=== PATIENT | female | born 1985 | race Caucasian/White ===

== ENCOUNTER 2021-11-12 12:00 | Outpatient (CLI) | payer MEDICAID, SELFPAY ==
[2021-11-12 13:56] LABS: Basophils Absolute Auto 0.02 K/uL (0.00-0.30); Basophils Percent Auto 0.3 % (0.0-3.0); Eosinophils Absolute Auto 0.12 K/uL (0.00-0.50); Eosinophils Percent Auto 1.7 % (0.0-7.0); Hematocrit 40.5 % (33.0-51.0); Hemoglobin* 13.6 gm/dL (12.0-16.0); Immature Granulocytes Abs Auto 0.01 K/uL (0.00-0.30); Lymphocytes Percent Auto 31.9 % (20-44); Mean Corpuscular HGB Conc 34 gm/dL (32-36); Mean Corpuscular Hemoglobin 31 pg (26-34); Mean Corpuscular Volume 92 fL (80-100); Monocytes Percent Auto 5.7 % (0.0-11.0); Neutrophils Absolute Auto 4.15 K/uL (1.7-7.0); Neutrophils Percent Auto 60.3 % (42.0-72.0); Platelet Count* 315 K/uL (140-440); RDW Coefficient of Variation % 11.6 % (11.5-15.5); Red Blood Count 4.42 m/uL (4.00-5.20); White Blood Count* 6.89 K/uL (4.50-11.00)
[2021-11-12 14:05] LABS: Bilirubin Direct* 0.2 mg/dL (0.0-0.5); Bilirubin Total* 0.2 mg/dL (0.1-1.5)
[2021-11-12 14:06] LABS: Alanine Aminotransferase* 24 U/L (4-35); Alkaline Phosphatase* 103 U/L (40-150); Aspartate Amino Transferase* 24 U/L (12-35); Total Protein* 6.9 g/dL (6.0-8.3)
[2021-11-12 14:19] LABS: C Reactive Protein* < 0.5 mg/dL (0.5-1.0)
[2021-11-12 14:44] LABS: Slide Review Reflex No
== END 2021-11-12 12:01 | disposition home or self-care (01) ==
PROVIDERS: PCP Family Medicine; Visit Provider Family Medicine
DX: R10.2 Pelvic and perineal pain (principal)
CPT/HCPCS: 80076; 85025; 86140

== ENCOUNTER 2021-11-20 11:33 | Outpatient (CLI) | payer MEDICAID, SELFPAY | END 2021-11-20 11:34 | disposition home or self-care (01) | LOC: FBOREF 11:33 | PROVIDERS: PCP Family Medicine; Visit Provider Family Medicine | DX: R10.2 Pelvic and perineal pain (principal); Z12.4 Encounter for screening for malignant neoplasm of cervix | CPT/HCPCS: 87624; 88175 ==

== ENCOUNTER 2021-12-05 13:14 | Outpatient (CLI) | payer MEDICAID, SELFPAY ==
--- NOTE | 2021-12-05 13:00 | CRLHL7_ITS ---
For Patients: As a result of the Century Cures Act, medical imaging exams and procedure reports are released immediately into your electronic medical record. You may view this report before your referring provider. If you have questions, please contact your health care provider. INDICATION: LIVER LESIONS SEEN ON CT Indication: Liver lesions on CT scan. Technique: MRI of the abdomen without and with intravenous gadolinium. Three plane localizer, 3 plane traverses, axial T1 weighted in and out of phase, axial T2 weighted without and with fat suppression, axial STIR, axial diffusion-weighted imaging with ADC map, and pre and post contrast axial coronal T1 weighted fat-suppressed VIBE pulse sequences were obtained. 20 cc of IV dotarem. Comparison: Outside CT of the abdomen and pelvis, 10/26/2021. Findings: The liver morphology is non cirrhotic. On the arterial phase, multiple liver lesions are present. The largest is seen in segment VII of the liver, image 23, series 18, which measures 6.0 x 5.2 cm in AP and transverse dimensions. This lesion has a central scar, and is more isointense on the portal venous/equilibrium phases of the exam. Lesions do not demonstrate intra voxel fat, and there is no T1 shortening within the lesion to indicate hemorrhagic transformation. No steatosis on chemical shift imaging. Non cirrhotic liver morphology. The hepatic veins, IVC, main portal vein, splenic vein, and SMV are patent. Symmetric nephrograms. No adrenal mass. No perinephric fluid collection. Spleen size is normal. No pancreatic mass, pancreatic duct dilation, or glandular atrophy. No abdominal lymphadenopathy or ascites. Normal marrow signal intensity. No pleural or pericardial effusion. Normal caliber biliary tree. No common bile duct stone or mass. Impression: 1. Multiple liver lesions which enhance during the arterial phase, do not contain intra voxel fat on chemical shift imaging, and which have a potential central scar on postcontrast images. 2. Regions of focal nodular hyperplasia are favored over hepatic adenomas. 3. Non cirrhotic liver morphology. 4. No abdominal lymphadenopathy or ascites. 5. Multidisciplinary evaluation is suggested. MRI evaluation in 3-6 months is suggested to begin documentation of stability. Dictated by Alonso Gaytan MD @ 12/08/2021 11:45:32 AM Dictated by: Alonso Gaytan MD @ 12/08/2021 11:45:48 (Electronically Signed)
== END 2021-12-05 13:15 | disposition home or self-care (01) ==
PROVIDERS: PCP Family Medicine; Visit Provider Family Medicine
DX: K76.9 Liver disease, unspecified (principal); K74.60 Unspecified cirrhosis of liver
CPT/HCPCS: 74183; A9575

== ENCOUNTER 2022-02-09 14:55 | Outpatient (CLI) | payer MEDICAID, SELFPAY | END 2022-02-09 14:56 | disposition home or self-care (01) | LOC: LAB 14:55 | PROVIDERS: PCP Family Medicine; Visit Provider Obstetrics & Gynecology | DX: N92.0 Excessive and frequent menstruation with regular cycle (principal) | CPT/HCPCS: 36415; 84443 ==

== ENCOUNTER 2022-02-16 15:53 | Outpatient (CLI) | payer MEDICAID, SELFPAY ==
--- NOTE | 2022-02-16 16:00 | CRLHL7_ITS ---
For Patients: As a result of the Century Cures Act, medical imaging exams and procedure reports are released immediately into your electronic medical record. You may view this report before your referring provider. If you have questions, please contact your health care provider. INDICATION: Ovarian cysts. TECHNIQUE: Transabdominal and transvaginal pelvic ultrasound. COMPARISON: None. FINDINGS: The uterus measures 8.4 x 3.6 x 4.6 cm. The endometrial stripe measures 8 mm transvaginally. Within the upper right uterine fundus there is a 9 x 6 x 8 mm intramural hypoechoic nodule likely a fibroid. This does not impinge upon the endometrial stripe. The right ovary measures 2.4 x 1.5 x 1.4 cm and contains a 9 mm follicle. The left ovary measures 3.1 x 1.8 x 2.5 cm and contains a dominant cyst measuring 1.9 x 1.5 x 1.4 cm. Blood flow is documented in the ovaries both arterial and venous. No torsion. No free pelvic fluid. IMPRESSION: 1. 1 x 9 cm left ovarian cyst. 9 mm right ovarian follicle. 2. 9 mm upper right fundal fibroid. 3. No endometrial stripe thickening. Dictated by Diony Major MD @ 02/17/2022 10:10:00 AM (Electronically Signed)
== END 2022-02-16 15:54 | disposition home or self-care (01) ==
PROVIDERS: PCP Family Medicine; Visit Provider Obstetrics & Gynecology
DX: N83.209 Unspecified ovarian cyst, unspecified side (principal); N83.202 Unspecified ovarian cyst, left side; D25.9 Leiomyoma of uterus, unspecified
CPT/HCPCS: 76830; 76856